=== PATIENT | male | born 1985 | race Caucasian/White ===

== ENCOUNTER 2016-06-12 18:25 | Emergency (ER) | payer SELFPAY ==
[2016-06-12 18:29] VITALS: BP 118/58; PULSE 72; RESP 18; TEMP 98.5
--- NOTE | 2016-06-12 18:53 | XR ---
EXAMINATION TYPE: XR shoulder limited RT DATE OF EXAM: 06/12/2016 6:48 PM COMPARISON: NONE HISTORY: Shoulder pain TECHNIQUE: Single view FINDINGS: There is evidence of anterior dislocation of the humeral head. No fractures seen. IMPRESSION: Anterior dislocation of the shoulder joint.
--- NOTE | 2016-06-12 19:45 | XR ---
EXAMINATION TYPE: XR shoulder complete RT DATE OF EXAM: 06/12/2016 7:40 PM COMPARISON: Today HISTORY: Post reduction TECHNIQUE: 2 views FINDINGS: There is anatomic reduction of the humeral head. I see no fracture. IMPRESSION: Anatomic reduction of the right shoulder joint.
--- NOTE | 2016-06-12 19:50 | ED ---
General Adult HPI - General Chief complaint: Extremity Injury, Upper Stated complaint: rt shoulder injury, poss dislocation Time Seen by Provider: 06/12/16 18:35 Source: patient, family, RN notes reviewed Mode of arrival: ambulatory Limitations: no limitations - History of Present Illness Initial comments: Chief complaint and history of present illness a 31-year-old male here with his significant other. The patient dislocated his right shoulder. He was trying at home since 3 PM to allow it to relocate by putting weight on his wrist but is unable to. Patient was last dislocated was 8 years ago. Today he was just reaching out when it dislocated no direct injury or trauma. No changes with neurovascular status to the hand. - Related Data Previous Rx's Medication Instructions Recorded Hydrocodone/Acetaminophen [Avalon 1 each PO Q6HR PRN #10 tab 06/12/16 5-325] Ibuprofen [Motrin] 600 mg PO Q6HR PRN #20 tab 06/12/16 Allergies Allergy/AdvReac Type Severity Reaction Status Date / Time No Known Allergies Allergy Verified 06/12/16 18:34 Review of Systems ROS Statement: Those systems with pertinent positive or pertinent negative responses have been documented in the HPI. 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 Last time the patient shoulder dislocated was 8 years ago. Patient denies any surgical history nonsmoker nondrinker. Family history not respiratory. No known ALLERGIES. ROS Other: All systems not noted in ROS Statement are negative. Past Medical History Additional Past Medical History / Comment(s): right shoulder dislocation History of Any Multi-Drug Resistant Organisms: None Reported Past Surgical History: No Surgical Hx Reported Past Psychological History: No Psychological Hx Reported Smoking Status: Never smoker Past Alcohol Use History: None Reported Past Drug Use History: None Reported General Exam - General Exam Comments Initial Comments: Pertinent to the patient's of visit the patient has a dislocated right shoulder. Neurovascular status to hands intact. Vital signs are temperature 98.0 pulse 87 respiratory rate 18 pulse ox 90% room air blood pressure 123/73. General physical sensation found the patient is otherwise normocephalic, without any complaints of chest pain or shortness breath or GI/ problems no complaints of any neuro deficits. Limitations: no limitations Course Vital Signs 06/12/16 18:26 Temperature 98.5 F Pulse Rate 72 Respiratory 18 Rate Blood Pressure 118/58 O2 Sat by Pulse 95 Oximetry Procedures - Procedures Initial comment: Procedure; traction countertraction and relaxation was used to relocate the shoulder. Post relocation shows evidence of shoulder in the glenoid without evidence of any irregularities or fractures. The patient had a shoulder immobilizer placed. He will be referred back to his family physician and orthopod as needed. Dr. Gandhi Medical Decision Making - Medical Decision Making X-ray of the right shoulder was done and reviewed by radiologist his impression is anterior dislocation of right shoulder. As read by Dr. Martinez Is reduction x-ray of the shoulder was reviewed by radiologist his findings are there is anatomic reduction of the humeral head. I see no fracture. Impression anatomic reduction of the right shoulder joint. As read by Dr. Martinez The patient right shoulder was reduced using traction countertraction. No medications necessary. Patient was able to relax enough with countertraction to relocate the dislocated right shoulder. Neurovascular status to the hand and arm before and after procedure normal. Reduced by Dr. Gandhi Disposition Clinical Impression: Dislocation of shoulder, anterior, right, closed Disposition: HOME SELF-CARE Condition: Good Instructions: Shoulder Dislocation (ED), Exercises for Shoulder Flexion and Extension (ED) Additional Instructions: Follow-up with family physician or on-call orthopod Dr. Cornejo. Prescriptions: Hydrocodone/Acetaminophen [Avalon 5-325] 1 each PO Q6HR PRN #10 tab PRN Reason: Pain Ibuprofen [Motrin] 600 mg PO Q6HR PRN #20 tab PRN Reason: Pain Time of Disposition: 19:50
== END 2016-06-12 20:15 | disposition home or self-care (01) ==
LOC: EDBD → EC 18:25
DX: S43.084A Other dislocation of right shoulder joint, initial encounter (principal); X58.XXXA Exposure to other specified factors, initial encounter
CPT/HCPCS: 99283; 23650; 73020; 73030; L3670

== ENCOUNTER → 2023-06-13 | Outpatient (CLI) | payer SELFPAY ==
--- NOTE | 2023-06-13 15:53 | US ---
EXAMINATION TYPE: US st tissue neck DATE OF EXAM: 06/13/2023 COMPARISON: NONE CLINICAL INDICATION: Male, 38 years old with history of R59.0 LOCALIZED ENLARGED LYMPH NODES; Palpabl e area on upper left neck/submandibular region. Patient states it has been there for 2 years and come s and goes TECHNIQUE: Targeted ultrasound right subareolar space at the area of concern. FINDINGS AND IMPRESSION: Decal Transferrer notes: Area of left upper neck/ submandibular region was scanned, no abnormalities seen t yovany. Opposite side was also scanned for comparison.
== END | disposition home or self-care (01) ==
LOC: RADUSWWP 12:56
PROVIDERS: ATTEND Family Medicine
DX: R59.0 Localized enlarged lymph nodes (principal)
CPT/HCPCS: 76536